=== PATIENT | female | born 1965 | race Caucasian/White ===

== ENCOUNTER → 2017-01-17 | Outpatient (CLI) | payer OTHER | LOC: FIMAGING 09:37 | DX: Z12.31 Encounter for screening mammogram for malignant neoplasm of breast (principal) | CPT/HCPCS: G0202 ==

== ENCOUNTER → 2017-11-20 | Outpatient (CLI) | payer OTHER | PROVIDERS: ATTEND Otolaryngology | DX: R13.10 Dysphagia, unspecified (principal) | CPT/HCPCS: 92611-GN ==

== ENCOUNTER → 2018-01-19 | Outpatient (CLI) | payer OTHER | LOC: FIMAGING 09:12 | DX: Z12.31 Encounter for screening mammogram for malignant neoplasm of breast (principal); Z80.3 Family history of malignant neoplasm of breast ==

== ENCOUNTER 2018-03-14 17:08 | Emergency (ER) | payer OTHER ==
[2018-03-14 17:15] VITALS: BP 113/72
--- NOTE | 2018-03-14 17:30 | EDPHY ---
HPI/HX/ROS/PE/MDM Narrative: CHIEF COMPLAINT: Fall, right ankle injury HISTORY OF PRESENT ILLNESS: This patient is a 53 year old female with history of osteopenia complaining of right ankle pain secondary to an accidental injury yesterday. She was hiking in [place] and her shoe caught on a branch. She fell to the left as her ankle bent outwards towards the right. Her pain is primarily over the lateral malleolus. She denies striking her head or any other trauma. She has been been icing the ankle and elevating her leg but has not seen a large reduction in pain or swelling. She has taken Tylenol and ibuprofen for pain relief. No fever or recent illness. She has no further complaints. REVIEW OF SYSTEMS: Aside from elements discussed in the HPI, a comprehensive 10-point review of systems was reviewed and is negative. PAST MEDICAL HISTORY: Osteopenia/osteoporosis. SOCIAL HISTORY: . Lives in [place]. Self-employed. VITAL SIGNS: Reviewed by me; see NN. GENERAL: Well-developed, well-nourished, in no acute distress. HEENT: Head: Atraumatic, normocephalic. Neck: Nontender to palpation, no pain with range of motion, no adenopathy. LUNGS: Clear to auscultation bilaterally, breath sounds are equal. CARDIAC: Regular rate and rhythm, no rubs, murmurs or gallops. BACK: No CVA tenderness, no spinal tenderness. EXTREMITIES: Ecchymosis over lateral aspect or right foot. Swelling over lateral and medial malleoli. PULSES: 2+ and equal throughout. NEURO: Alert and oriented x3, cranial nerves are intact throughout, normal motor , normal sensation. SKIN: Warm and dry, no rash. Portions of this note were transcribed by a medical research associate. I personally performed a history, physical exam, medical decision making, and confirmed accuracy of information the transcribed note. ED Course: 52 y/o female presents with right ankle pain secondary to a mechanical fall yesterday while hiking. Exam reveals ecchymosis over lateral aspect of the right foot, and swelling to the lateral and medial malleoli, greater over the lateral malleolus. Plan for x-ray for further evaluation. Patient declines narcotic pain medication. Reviewed x-ray. Evidence of hairline fracture to right ankle. Radiologist report pending. Plan to discharge patient home in good condition. She will follow up with orthopedics this week. Referral provided. RLE placed in a boot for immobilization. Reexamined afterwards: boot fits well and patient is neurovascularly intact. She will be given crutches. Prescription for [place] provided for severe pain. Follow up and return precautions discussed. She is comfortable with this plan. MDM: Differential diagnosis for the patient's injury was considered including but not limited to contusion, abrasion, laceration, fracture, open fracture, or dislocation. - Data Points Imaging Results: Right ankle series: Impression: Lateral malleolar fracture. Dictated By: Enrrique Echeverria MD Imaging: I viewed and interpreted images myself Medications Given: Discontinued Medications Acetaminophen (Tylenol) 650 mg PO EDNOW ONE Stop: 03/14/18 18:00 Last Admin: 03/14/18 18:00 Dose: 650 mg Ibuprofen (Motrin) 600 mg PO EDNOW ONE Stop: 03/14/18 17:51 Last Admin: 03/14/18 18:01 Dose: 600 mg General Time Seen by Provider: 03/14/18 17:18 Initial Vital Signs: Initial Vital Signs Temperature (C) 36.8 C 03/14/18 17:10 Heart Rate 78 03/14/18 17:10 Respiratory Rate 18 03/14/18 17:10 Blood Pressure 113/72 03/14/18 17:10 O2 Sat (%) 98 03/14/18 17:10 O2 Delivery Mode Room Air Allergies/Adverse Reactions: Penicillins Allergy (Intermediate, Verified 03/14/18 17:15) as kid; hives Home Medications: Medication Instructions Recorded Calcium Carbonate [Calcium] 500 mg PO 03/14/18 Hydrocodone/APAP 5/325 [[place] 1 tab PO Q6H PRN #10 tab 03/14/18 5/325 (RX)] Vitamin A Palmitate/Vitamin D2 03/14/18 [VITAMINS A & D TABLET] Departure - Departure Disposition: Home, Routine, Self-Care Clinical Impression: Closed right ankle fracture Qualifiers: Encounter type: initial encounter Qualified Code(s): S82.891A - Other fracture of right lower leg, initial encounter for closed fracture Condition: Good Instructions: Ankle Fracture (ED) Additional Instructions: 1. Follow up with an orthopedic surgeon within one week. Wear boot at all times until reevaluation. You may take it off to shower or ice. Use crutches as directed. No weight-bearing until followup with orthopedics. 2. Mainstay of therapy is rest, ice, immobilization, elevation, and nonsteroidal anti-inflammatories for pain and to decrease swelling. Apply ice for 20-30 minutes every 2-3 hours for the next 48 hours. I recommend Ibuprofen (Motrin, Advil) or Naproxen Sodium (Aleve) for pain and anti-inflammatory effects. You may take either one, but do not take both. Your dose is: Ibuprofen 600 mg every 6-8 hours with food. OR Naproxen Sodium (Aleve) 220 mg every 12 hours. Okay to use [place] as needed for severe pain. 3. Return to the emergency department for worsening pain, swelling, numbness, weakness or other concerns. Referrals: Nestor Pinedo MD [Primary Care Provider] - As per Instructions Surjit Mcgregor MD [Medical Doctor] - As per Instructions Prescriptions: Hydrocodone/APAP 5/325 [[place] 5/325 (RX)] 1 tab PO Q6H PRN #10 tab PRN Reason: Pain Report Scribed for: Taina Jung Report Scribed by: Sweta Day Date of Report: 03/14/18 Time of Report: 17:40
[2018-03-14] MEDS ORDERED: IBUPROFEN 600 MG TAB PO ONE (17:50)
[2018-03-14] MEDS ORDERED: ACETAMINOPHEN 325 MG TAB ONE (17:58)
[2018-03-14] MEDS ORDERED: ACETAMINOPHEN 325 MG TAB PO ONE (17:59)
--- NOTE | 2018-03-16 10:58 | ASMTCMCOM ---
CM Note CM Note Notes: Follow up call to patient regarding referral for orthopedic follow up. Patient reports that when she called Dr. Mcgregor for an appointment, she was informed that she could not get in to see an orthopedic provider within the week. She was offered an appointment with Dr. Kimbrough (sprigger) for 03/18, but patient would prefer to see a different provider. She has looked into her insurance and other options. She has scheduled an appointment with Dr. Steele at [facility] on Friday, 03/23. I offered to send her ER record to Dr. Steele and have faxed this along with patient's demographics, per patient's request Date Signed: 03/16/2018 10:58 AM Electronically Signed By:Sofia Downey RN
== END 2018-03-14 18:06 | disposition home or self-care (01) ==
DX: S82.61XA Displaced fracture of lateral malleolus of right fibula, initial encounter for closed fracture (principal); W01.0XXA Fall on same level from slipping, tripping and stumbling without subsequent striking against object, initial encounter; Y92.89 Other specified places as the place of occurrence of the external cause; Y99.8 Other external cause status; Y93.01 Activity, walking, marching and hiking
CPT/HCPCS: L4386

== ENCOUNTER → 2018-04-06 | Outpatient (CLI) | payer OTHER | LOC: BMCIMAGING 10:28 | PROVIDERS: ATTEND Internal Medicine | DX: Z13.820 Encounter for screening for osteoporosis (principal); M81.0 Age-related osteoporosis without current pathological fracture; Z78.0 Asymptomatic menopausal state ==

== ENCOUNTER → 2019-03-06 | Outpatient (CLI) | payer OTHER | LOC: FIMAGING 09:53 ==